=== PATIENT | male | born 1955 | race Caucasian/White ===

== ENCOUNTER 2023-07-27 03:55 | Inpatient (IN) ==
[2023-07-27] MEDS ORDERED: Al Hydrox/Mg Hydrox/Simet LIQ 30 ML UDC PO PRN (05:25)
[2023-07-27] MEDS: Heparin 5000 UNITS/ML 1 mL VIAL SUBCUT SCH (05:51)
[2023-07-27] MEDS: Vancomycin 1,000 MG in NS 0.9% 250 ml 250 ML IVPB ONE (07:11)
[2023-07-27] MEDS ORDERED: Cefepime 2 GM in Dextrose 2 GM/50 ML BAG IV SCH (08:00)
[2023-07-27 10:13] LABS: Hematocrit 34.6 % (38-53); Hemoglobin 11.5 g/dL (13.2-16.3); Mean Corpuscular Hemoglobin 30.5 pg (27-33); Mean Corpuscular Hgb Conc 33.2 g/dL (31-36); Mean Platelet Volume 9.8 fL (7.5-11.2); Platelet Count 222 10^3/uL (150-450); Red Blood Count 3.76 10^6/uL (4.06-5.63); White Blood Count 13.7 10^3/uL (3.6-10.2)
[2023-07-27 10:37] LABS: Albumin 3.6 g/dL (3.2-5.2); Albumin/Globulin Ratio 1.3 (1-3); Calcium 7.9 mg/dL (8.6-10.3); Creatinine, Serum 1.48 mg/dL (0.67-1.17); Globulin 2.7 g/dL (2-4); Magnesium 1.9 mg/dL (1.9-2.7); Potassium 4.3 mmol/L (3.5-5.0); Total Bilirubin 0.5 mg/dL (0.2-1.0); Total Protein 6.3 g/dL (6.4-8.9); eGFR CKD-EPI 50.9 (>60)
[2023-07-27] MEDS: Aspirin EC 81 mg TAB.EC (enteric coated) PO SCH (11:12)
[2023-07-27] MEDS: Furosemide 40 mg/4 ml IV VIAL IV SCH (11:14)
[2023-07-27] MEDS: Cefepime 2 GM in Dextrose 2 GM/50 ML BAG IV SCH (11:27)
[2023-07-27] MEDS: Furosemide 40 mg/4 ml IV VIAL IV ONE (11:44)
[2023-07-27] MEDS ORDERED: Sulfur Hexaflouride MICROSPHR 25 MG VIAL ONE (12:51)
[2023-07-27] MEDS: Enoxaparin 40 MG/0.4 ML SYR SUBCUT SCH (15:55)
[2023-07-27 17:13] LABS: Ferritin 160.2 ng/mL (24-336)
[2023-07-27] MEDS: Iron Sucrose 200 MG in NS 0.9% 100 ml BAG 100 ML IVPB SCH (18:27)
[2023-07-28 04:56] LABS: ABS Basophils 0.1 10^3/uL (0.0-0.1); ABS Eosinophils 0.3 10^3/uL (0.0-0.5); ABS Lymphocytes 1.3 10^3/uL (1.0-4.8); ABS Monocytes 1.1 10^3/uL (0.0-1.1); ABS Neutrophils 7.5 10^3/uL (1.5-7.6); ABS Nucleated RBC 0.01 10^3/ul; Eosinophil % 3.2 %; Hematocrit 32.9 % (38-53); Hemoglobin 11.2 g/dL (13.2-16.3); Mean Corpuscular Hemoglobin 31.2 pg (27-33); Mean Corpuscular Volume 91.9 fL (80-97); Mean Platelet Volume 9.7 fL (7.5-11.2); Platelet Count 198 10^3/uL (150-450); Red Blood Count 3.58 10^6/uL (4.06-5.63); White Blood Count 10.4 10^3/uL (3.6-10.2)
[2023-07-28 05:12] LABS: Calcium 7.9 mg/dL (8.6-10.3); Creatinine, Serum 1.55 mg/dL (0.67-1.17); Magnesium 2.9 mg/dL (1.9-2.7); Potassium 4.3 mmol/L (3.5-5.0); eGFR CKD-EPI 48.2 (>60)
[2023-07-28] MEDS ORDERED: Iron Sucrose 200 MG in NS 0.9% 100 ml BAG 100 ML IVPB SCH (09:00)
[2023-07-28] MEDS: Bumetanide IV 0.25 MG/ML 4 ml VIAL (1 mg) IV SLOW PU SCH (10:12)
[2023-07-28 10:22] LABS: INR 1.22 (0.83-1.13)
[2023-07-28 16:07] VITALS: BP 99/62
[2023-07-28] MEDS ORDERED: Senna TAB 8.6 mg TAB PO PRN (16:54)
== END 2023-07-28 20:20 | disposition short-term general hospital (02) | DRG 291 ==
LOC: ED 03:55 → EDHOLD 05:25 → SUATTDRO 05:25 → ICU 08:11
PROVIDERS: ADMIT Internal Medicine; ATTEND Internal Medicine Critical Care Medicine